=== PATIENT | female | born 1960 | race Caucasian/White ===

== ENCOUNTER 2017-05-18 15:45 | Emergency (ER) | payer OTHER ==
[2017-05-18] MEDS ORDERED: NORMAL SALINE 1000 ML 1,000 ML IV ONE (16:24)
[2017-05-18] MEDS ORDERED: CEFTRIAXONE 2 GM/D5W RTU 2 GM/50 ML RTUPB IV ONE (16:25)
[2017-05-18] MEDS ORDERED: AZITHROMYCIN 250 MG TABLET PO ONE (16:25)
--- NOTE | 2017-05-18 16:27 | ER Document Report ---
ED Medical Screen (RME) - General Chief Complaint: Pain All Over Stated Complaint: COUGH,CONGESTION,HEADACHE,BODY ACHES Time Seen by Provider: 05/18/17 16:19 Notes: Patient has a history of scleroderma and rheumatoid arthritis. 2 days she has had cough chills shortness of breath and weakness. She went to her primary doctor today who did an x-ray and diagnosed her with pneumonia. She was then referred to the emergency department. TRAVEL OUTSIDE OF THE [place] IN LAST 30 DAYS: No - Related Data Allergies/Adverse Reactions: No Known Allergies Allergy (Unverified 05/18/17 15:54) Past Medical History - Social History Frequency of alcohol use: None Drug Abuse: None Renal/ Medical History: Denies: Hx Peritoneal Dialysis Physical Exam - Vital signs Vitals: Temp Pulse Resp BP Pulse Ox 99.6 F 96 20 146/78 H 97 05/18/17 15:54 05/18/17 15:54 05/18/17 15:54 05/18/17 15:54 05/18/17 15:54 Course - Vital Signs Vital signs: Temp Pulse Resp BP Pulse Ox 99.6 F 96 20 146/78 H 97 05/18/17 15:54 05/18/17 15:54 05/18/17 15:54 05/18/17 15:54 05/18/17 15:54
[2017-05-18 17:09] LABS: ABSOLUTE LYMPHOCYTES (AUTO) 0.8 10^3/uL (0.5-4.7); ABSOLUTE MONOCYTES (AUTO) 1.2 10^3/uL (0.1-1.4); ABSOLUTE NEUT (AUTO) 5.9 10^3/uL (1.7-8.2); BASOPHILS % (AUTO) 0.6 % (0-2); EOSINOPHILS % (AUTO) 0.1 % (0-6); HEMATOCRIT 40.4 % (36.0-47.0); HEMOGLOBIN 13.2 g/dL (12.0-15.5); HGB HCT DIFFERENCE -0.8; LYMPHOCYTES % (AUTO) 10.5 % (13-45); MEAN CORPUSCULAR HEMOGLOBIN 23.7 pg (27.0-33.4); MEAN CORPUSCULAR HGB CONC 32.6 g/dL (32.0-36.0); MEAN CORPUSCULAR VOLUME 73 fl (80-97); MONOCYTES % (AUTO) 14.6 % (3-13); RED BLOOD COUNT 5.56 10^6/uL (3.72-5.28); RED CELL DISTRIBUTION WIDTH 15.9 % (11.5-14.0); SEGMENTED NEUTROPHILS % (AUTO) 74.2 % (42-78); VENOUS BLOOD BASE EXCESS 0.1 mmol/L; VENOUS BLOOD PCO2 46.7 mmHg (35-63); VENOUS BLOOD PH 7.36 (7.30-7.42); WHITE BLOOD COUNT 7.9 10^3/uL (4.0-10.5)
[2017-05-18 17:26] LABS: APPEARANCE,URINE CLEAR; BILIRUBIN,URINE NEGATIVE (NEGATIVE); GLUCOSE, URINE NEGATIVE (NEGATIVE); KETONES,URINE 20 mg/dL (NEGATIVE); LEUKOCYTE ESTERASE,URINE NEGATIVE (NEGATIVE); NITRITE,URINE NEGATIVE (NEGATIVE); PROTEIN,URINE NEGATIVE (NEGATIVE); URINE SPECIFIC GRAVITY 1.012; UROBILINOGEN,URINE NEGATIVE mg/dL (<2.0)
[2017-05-18 17:33] LABS: ALANINE AMINOTRANSFERASE 30 U/L (9-52); ALBUMIN 4.6 g/dL (3.5-5.0); ALKALINE PHOSPHATASE 75 U/L (38-126); ANION GAP 15 (5-19); ASPARTATE AMINO TRANSFERASE 28 U/L (14-36); BILIRUBIN,DIRECT 0.3 mg/dL (0.0-0.4); BILIRUBIN,TOTAL 0.8 mg/dL (0.2-1.3); BLOOD UREA NITROGEN 9 mg/dL (7-20); CALCIUM 8.7 mg/dL (8.4-10.2); CARBON DIOXIDE 27 mmol/L (22-30); CHLORIDE 97 mmol/L (98-107); CREATININE RESULT 0.57 mg/dL (0.52-1.25); GLUCOSE 95 mg/dL (75-110); POTASSIUM 3.1 mmol/L (3.6-5.0); SODIUM 138.7 mmol/L (137-145); TOTAL PROTEIN 8.2 g/dL (6.3-8.2)
[2017-05-18] MEDS ORDERED: LEVOFLOXACIN 500 MG TABLET PO ONE (18:29)
--- NOTE | 2017-05-18 18:45 | ER Document Report ---
ED General - General Chief Complaint: Pain All Over Stated Complaint: COUGH,CONGESTION,HEADACHE,BODY ACHES Time Seen by Provider: 05/18/17 16:19 TRAVEL OUTSIDE OF THE [place] IN LAST 30 DAYS: No - HPI Patient complains to provider of: Feeling unwell cough congestion body aches Notes: Patient was sent in from urgent care for further evaluation as patient had an outpatient chest x-ray showing pneumonia and a positive positive flu test flu B. Patient denies any nausea vomiting diarrhea states fever states recent travel from [place]. Denies any other sick contacts. Upon my evaluation patient is resting currently in no obvious distress states myalgias. States has a history of scleroderma however is not on any immunosuppressive medications. - Related Data Allergies/Adverse Reactions: No Known Allergies Allergy (Unverified 05/18/17 15:54) Past Medical History - Social History Smoking Status: Never Smoker Frequency of alcohol use: None Drug Abuse: None Family History: Reviewed & Not Pertinent Patient has suicidal ideation: No Patient has homicidal ideation: No Renal/ Medical History: Denies: Hx Peritoneal Dialysis Review of Systems - Review of Systems Constitutional: Chills, Fever, Other - Feeling unwell EENT: No symptoms reported Cardiovascular: No symptoms reported Respiratory: Short of breath Gastrointestinal: No symptoms reported Genitourinary: No symptoms reported Female Genitourinary: No symptoms reported Musculoskeletal: No symptoms reported Skin: No symptoms reported Hematologic/Lymphatic: No symptoms reported Neurological/Psychological: No symptoms reported -: Yes All other systems reviewed and negative Physical Exam - Vital signs Vitals: Temp Pulse Resp BP Pulse Ox 99.6 F 96 20 146/78 H 97 05/18/17 15:54 05/18/17 15:54 05/18/17 15:54 05/18/17 15:54 05/18/17 15:54 Interpretation: Normal - General General appearance: Appears well, Alert - HEENT Head: Normocephalic, Atraumatic Eyes: Normal Pupils: PERRL - Respiratory Respiratory status: No respiratory distress Chest status: Nontender Breath sounds: Rhonchi Chest palpation: Normal - Cardiovascular Rhythm: Regular Heart sounds: Normal auscultation Murmur: No - Abdominal Inspection: Normal Distension: No distension Bowel sounds: Normal Tenderness: Nontender Organomegaly: No organomegaly - Back Back: Normal, Nontender - Extremities General upper extremity: Normal inspection, Nontender, Normal color, Normal ROM , Normal temperature General lower extremity: Normal inspection, Nontender, Normal color, Normal ROM , Normal temperature, Normal weight bearing. No: Mili's sign - Neurological Neuro grossly intact: Yes Cognition: Normal Orientation: AAOx4 [place] Coma Scale Eye Opening: Spontaneous [place] Coma Scale Verbal: Oriented [place] Coma Scale Motor: Obeys Commands [place] Coma Scale Total: 15 Speech: Normal Motor strength normal: LUE, RUE, LLE, RLE Sensory: Normal - Psychological Associated symptoms: Normal affect, Normal mood - Skin Skin Temperature: Warm Skin Moisture: Dry Skin Color: Normal Course - Re-evaluation Re-evalutation: 05/18/17 22:43 Laboratory studies not show any signs of overt sepsis. Patient was given IV antibiotics here. Will discharge patient home Levaquin. Discussed with the patient the use of Tamiflu. Patient states understanding. Otherwise no hypoxia no signs of her sepsis no signs of impending restaurant compromise. Patient will be discharged home follow-up primary care physician. - Vital Signs Vital signs: Temp Pulse Resp BP Pulse Ox 99.8 F 90 20 148/86 H 96 05/18/17 19:13 05/18/17 19:13 05/18/17 19:13 05/18/17 19:13 05/18/17 19:13 - Laboratory Result Diagrams: 05/18/17 17:00 05/18/17 17:00 Laboratory results interpreted by me: 05/18/17 05/18/17 05/18/17 16:55 17:00 17:00 RBC 5.56 H MCV 73 L MCH 23.7 L RDW 15.9 H Lymphocytes % 10.5 L Monocytes % 14.6 H Potassium 3.1 L Chloride 97 L Urine Ketones 20 H Urine Blood SMALL H Discharge - Discharge Clinical Impression: Influenza B Pneumonia Qualifiers: Pneumonia type: due to unspecified organism Laterality: unspecified laterality Lung location: unspecified part of lung Qualified Code(s): J18.9 - Pneumonia, unspecified organism Condition: Good Disposition: HOME, SELF-CARE Instructions: Influenza ([facility]), Levofloxacin, Pneumonia ([facility]) Additional Instructions: Follow-up with your primary care physician at this time we will start you on Levaquin for your pneumonia. I will give you a prescription for Tamiflu which may not relieve much of your symptoms. Return to the ER symptoms worsen. Please use the inhaler we gave you here in the ER for any shortness of breath. Please drink plenty of fluids Prescriptions: Levofloxacin 500 mg PO DAILY #9 tablet Oseltamivir Phosphate [Tamiflu] 75 mg PO BID #10 capsule Forms: Return to Work
[2017-05-18] MEDS ORDERED: ALBUTEROL SULFATE HFA (90 MCG/PUFF) 8 GM MDI (1 MDI/ER DISP) IH ONE (18:46)
[2017-05-18 19:13] VITALS: BP 148/86
--- NOTE | 2017-05-18 19:53 | EKG REPORT ---
SEVERITY:- ABNORMAL ECG - SINUS RHYTHM LVH W/ REPOL ABNORMALITIES, POSSIBLE ISCHEMIA : Confirmed by: Reji Du MD 18-May-2017 19:52:24
== END 2017-05-18 19:14 | disposition home or self-care (01) ==
LOC: ER 15:45
DX: J11.1 Influenza due to unidentified influenza virus with other respiratory manifestations (principal); J18.9 Pneumonia, unspecified organism; M79.1 Myalgia; R05 Cough; R09.81 Nasal congestion; R51 Headache
CPT/HCPCS: 93005; 99283; 96365; 36415; 87040; 87086; 85025; 80053; 81001; 82803; 83605; 93010; J7030; J3490; J0696